=== PATIENT | male | born 1985 | race Caucasian/White ===

== ENCOUNTER 2018-08-02 21:52 | Emergency (ER) | payer OTHER ==
[~2018-08-02] VITALS: Ht 160 cm; Wt 61.4 kg
[2018-08-02] MEDS ORDERED: LIDOCAINE 1% 10 ML VIAL INJ ONE (23:00)
[2018-08-03 00:04] VITALS: BP 138/80
== END 2018-08-03 00:26 | disposition home or self-care (01) ==
LOC: EMS 21:53
DX: S61.216A Laceration without foreign body of right little finger without damage to nail, initial encounter (principal); F17.210 Nicotine dependence, cigarettes, uncomplicated; W26.8XXA Contact with other sharp object(s), not elsewhere classified, initial encounter; Y93.89 Activity, other specified; Y92.89 Other specified places as the place of occurrence of the external cause; Y99.9 Unspecified external cause status
CPT/HCPCS: 12001; 73120; 99284; J3490

== ENCOUNTER 2019-08-18 23:53 | Emergency (ER) | payer OTHER ==
[~2019-08-18] VITALS: Ht 165.1 cm; Wt 63.6 kg
[2019-08-19] MEDS ORDERED: FLUORESCEIN SODIUM 1 MG STRIP OU ONE (00:45)
[2019-08-19] MEDS ORDERED: PROPARACAINE HCL 0.5% 15 ML OPHTHALMIC SOLUTION OU ONE (00:45)
[2019-08-19] MEDS ORDERED: PERTUSS(ACELL),DIPH,TET VAC/PF 0.5 ML VIAL IM ONE (01:15)
[2019-08-19] MEDS ORDERED: ERYTHROMYCIN 0.5% 3.5 GM TUBE OPHTHALMIC OINTMENT OS ONE (01:15)
[2019-08-19 01:46] VITALS: BP 127/87
== END 2019-08-19 02:15 | disposition home or self-care (01) ==
LOC: EMS 23:53
DX: T15.92XA Foreign body on external eye, part unspecified, left eye, initial encounter (principal); S05.02XA Injury of conjunctiva and corneal abrasion without foreign body, left eye, initial encounter; F17.210 Nicotine dependence, cigarettes, uncomplicated; X58.XXXA Exposure to other specified factors, initial encounter; Y93.89 Activity, other specified; Y92.89 Other specified places as the place of occurrence of the external cause; Y99.8 Other external cause status
CPT/HCPCS: 90471; 90715

== ENCOUNTER 2025-08-13 11:20 | Emergency (ER) | payer OTHER ==
[~2025-08-13] VITALS: Ht 153.7 cm; Wt 63.6 kg
[2025-08-13 11:24] VITALS: BP 113/68; PULSE 96; RESP 18; TEMP 98.1; O2SAT 100
[2025-08-13] MEDS ORDERED: SULF-261 PO (12:33)
[2025-08-13] MEDS ORDERED: CEPH-558 PO (12:33)
[2025-08-13] MEDS ORDERED: ACET-2247 PO (12:33)
[2025-08-13] MEDS ORDERED: IBUP-1492 PO (12:33)
[2025-08-13] MEDS: ACETAMINOPHEN 500 MG TABLET PO ONE (13:10)
[2025-08-13] MEDS: CEPHALEXIN MONOHYDRATE 500 MG CAPSULE PO ONE (13:10)
[2025-08-13] MEDS: KETOROLAC TROMETHAMINE 30 MG/ML VIAL IM ONE (13:10)
[2025-08-13] MEDS: SULFAMETHOX/TRIMETH DS 800-160 MG/TABLET PO ONE (13:10)
== END 2025-08-13 13:44 | disposition home or self-care (01) ==
LOC: EMS 11:48
DX: S60.221A Contusion of right hand, initial encounter (principal); F17.210 Nicotine dependence, cigarettes, uncomplicated; W22.03XA Walked into furniture, initial encounter; Y93.89 Activity, other specified; Y92.89 Other specified places as the place of occurrence of the external cause; Y99.8 Other external cause status
CPT/HCPCS: 99284; 73130; 96372; J1885